=== PATIENT | female | born 1980 | race Two or more races ===

== ENCOUNTER 2020-11-18 18:46 | Emergency (ER) | payer MEDICAID ==
[~2020-11-18] VITALS: Ht 167.6 cm; Wt 100.0 kg
[2020-11-18 20:17] LABS: BASOPHILS % 0.6 % (0.0-2.0); EOSINOPHILS % 0.2 % (0.0-5.0); HEMATOCRIT. 42.5 % (36.0-48.0); HEMOGLOBIN. 13.9 g/dL (12.0-16.0); MEAN CORPUSCULAR VOLUME 82.4 fL (81.0-99.0); MEAN PLATELET VOLUME 9.9 fl (7.4-10.4); NEUTROPHILS % 61.2 % (40.0-76.0); PLATELET 289 x1000/uL (130-400); RED BLOOD CELL COUNT 5.16 mill/uL (4.2-5.4); RED CELL DISTRIBUTION WIDTH 13.7 % (11.6-14.6)
[2020-11-18 20:26] LABS: CHLORIDE 101 mEq/L (98-107)
[2020-11-18 20:35] LABS: PROTHROMBIN TIME 10.3 sec (9.6-11.0)
[2020-11-18] MEDS ORDERED: ALBUTEROL 6.7GM HFA INHALER ORI ONE (21:15)
[2020-11-18] MEDS ORDERED: SODIUM CHLORIDE 0.9% 1,000 ML IV ONE (21:15)
[2020-11-18 21:38] LABS: CLARITY URINE CLEAR (CLEAR); COLOR URINE YELLOW (YELLOW); KETONES URINE NEGATIVE (NEGATIVE); LEUKOCYTE ESTERASE URINE NEGATIVE (NEGATIVE); NITRITE URINE NEGATIVE (NEGATIVE); OCCULT BLOOD URINE 1+ (NEGATIVE); PH URINE 5.5 (4.5-8.0); PROTEIN URINE TRACE (NEGATIVE); SPECIFIC GRAVITY URINE 1.016 (1.005-1.030); UROBILINOGEN URINE 0.2 E.U./dL (0.2-1.0)
[2020-11-18 21:41] LABS: HCG SCREEN NEGATIVE
[2020-11-18 21:51] LABS: *AMPHETAMINES SCREEN URINE NEGATIVE (NEGATIVE); *BARBITURATES SCREEN URINE NEGATIVE (NEGATIVE); *BENZODIAZEPINES SCREEN URINE NEGATIVE (NEGATIVE); *COCAINE SCREEN URINE NEGATIVE (NEGATIVE); METHADONE URINE SCREEN NEGATIVE (NEGATIVE)
[2020-11-18 21:52] LABS: CANNABINOID URINE SCREEN NEGATIVE (NEGATIVE); OPIATES URINE SCREEN NEGATIVE (NEGATIVE); PHENCYCLIDINE URINE SCREEN NEGATIVE (NEGATIVE)
[2020-11-18] MEDS ORDERED: AZITHROMYCIN 500 MG TABLET PO ONE (22:30)
[2020-11-19] MEDS ORDERED: MED4 MT (00:50)
[2020-11-19] MEDS ORDERED: AZIT500T8 MT (00:50)
[2020-11-19] MEDS ORDERED: ALBU6.7H9 INH (00:50)
[2020-11-19 01:26] VITALS: BP 120/72
== END 2020-11-19 01:27 | disposition home or self-care (01) ==
LOC: ER 18:46 → CANBEDREQ 11-19 09:02
DX: J18.9 Pneumonia, unspecified organism (principal); R07.89 Other chest pain; B34.9 Viral infection, unspecified; E03.9 Hypothyroidism, unspecified; Z03.818 Encounter for observation for suspected exposure to other biological agents ruled out; Z87.891 Personal history of nicotine dependence; Z88.0 Allergy status to penicillin
CPT/HCPCS: 36415; 71045; 80053; 80305; 81003; 83605; 83880; 84145; 84484; 84703; 85025; 85610; 87040; 87086; 93005; 94640; 96360; 99285; C9803; J7030; U0003

== ENCOUNTER 2020-11-20 19:38 | Emergency (ER) | payer MEDICAID ==
[~2020-11-20 19:38] MED LIST: ALBU6.7H9 INH; AZIT500T8 MT; MED4 MT
== END 2020-11-20 21:59 | disposition left against medical advice (07) ==
LOC: ER 19:38
DX: Z53.21 Procedure and treatment not carried out due to patient leaving prior to being seen by health care provider (principal)

== ENCOUNTER 2021-09-06 18:25 | Emergency (ER) | payer MEDICAID ==
[~2021-09-06] VITALS: Ht 167.6 cm; Wt 89.0 kg
[2021-09-06 18:26] VITALS: BP 119/67
== END 2021-09-06 22:24 | disposition left against medical advice (07) ==
LOC: ER 18:25
DX: Z53.21 Procedure and treatment not carried out due to patient leaving prior to being seen by health care provider (principal); R07.89 Other chest pain
CPT/HCPCS: 93005